=== PATIENT | female | born 1950 | race Caucasian/White ===

== ENCOUNTER 2017-11-25 08:00 | Outpatient (RCR) | payer MEDICARE, MEDICAID ==
[~2017-11-25] VITALS: Ht 157.5 cm; Wt 52.2 kg
[~2017-11-25 08:00] MED LIST: ASCO-182 PO; ASCO-191 PO; CALC500T6 PO; CALC600T63 PO; CEPH-13 PO; CEPH500T7 PO; CHOL200022 PO; DEN60I SUBQ; DIPH-466 PO; FLUT16SP19; IBUP-56 PO; IBUP200C71 PO; IBUP600T22 PO; MELO-207 PO; MULT-42 PO; ONDA8TAB91 PO; ONDA8TAB94 PO; PANT40TA65 PO; PROC10TA4 PO; TETR-30 PO; TRAM-420 PO; VIT1TAB.9 PO; ZOLP-350 PO
--- NOTE | 2017-11-25 13:42 | RADIOLOGY IMAGING REPORT ---
FACILITY: [facility] PATIENT NAME: Carola Rosario : 1950 MR: [id number] V: [id number] EXAM DATE: ORDERING PHYSICIAN: ANDREW ORDOÑEZ TECHNOLOGIST: Location: [facility] Patient: Carola Rosario : 1950 Visit/Account:[id number] Date of Sevice: 11/25/2017 Exam type: CHEST PA AND LAT History: History of breast cancer, shortness of breath Comparison: None. Findings: The lungs are free of acute effusions, infiltrates or edema. The cardiac silhouette is normal in siz e. There are moderate spondylotic changes of the thoracic spine.. There are surgical clips in the u pper abdomen IMPRESSION: 1. No acute cardiopulmonary process is seen Report Dictated By: Lissy Bean MD at 11/25/2017 1:37 PM Report E-Signed By: Lissy Bean MD at 11/25/2017 1:38 PM WSN:[id number]
[2017-12-08] MEDS ORDERED: MIDAZOLAM 2 MG/2 ML VIAL IVP PRN (09:15)
[2017-12-08] MEDS ORDERED: ceFAZolin(*) 2GM/D5W 50ML 50 ML IVPB ONE (09:15)
[2017-12-08] MEDS ORDERED: NORMOSOL R SOLN(*) 1000 ML BAG 1,000 ML IV PRN (09:15)
[2017-12-08] MEDS ORDERED: BACITRACIN 50000 UNIT/VIAL 100,000 UNIT in NS 0.9% 3000 ML IRRIGATION BAG 3,000 ML IR ONE (09:15)
[2017-12-08] MEDS ORDERED: FAMOTIDINE 20 MG TAB PO ONE (09:15)
[2017-12-08] MEDS ORDERED: cloNIDine EPIDUR INJ 100MCG/ML 40 MCG, ROPIVACAINE 0.5% 20 ML VIAL 25 ML, EPINEPHrine H... EPI ONE (09:15)
[2017-12-08] MEDS ORDERED: LIDOCAINE/SOD BICARB 8.4% SYR ID ONE (09:15)
[2017-12-08] MEDS ORDERED: TRANEXAMIC AC 1000 MG/10ML SDV 1,000 MG in DEXTROSE 5% 50 ML BAG 50 ML IV ONE (09:15)
== END 2017-12-07 08:00 | disposition home or self-care (01) ==
LOC: RAD 08:00 → EDSTATUS 12-08 10:15
PROVIDERS: ATTEND Orthopaedic Surgery
DX: Z01.812 Encounter for preprocedural laboratory examination (principal); Z01.810 Encounter for preprocedural cardiovascular examination; Z01.818 Encounter for other preprocedural examination; M16.11 Unilateral primary osteoarthritis, right hip; Z85.3 Personal history of malignant neoplasm of breast; R06.02 Shortness of breath
CPT/HCPCS: 71020

== ENCOUNTER 2017-11-30 09:07 | Emergency (ER) | payer MEDICARE, MEDICAID ==
[2017-11-30] MEDS ORDERED: NS(*) 0.9% 1000 ML BAG 1,000 ML IV ONE ×2 (09:14)
[2017-11-30] MEDS ORDERED: ONDANSETRON 4 MG/2 ML VIAL IVP ONE (09:15)
--- NOTE | 2017-11-30 09:41 | ER Report ---
History and Physical Time Seen By MD: 09:25 Hx. of Stated Complaint: Patient reporting severe nausea since yesterday. Patient had the "stomach flu" on . HPI/ROS CHIEF COMPLAINT: Nausea HISTORY OF PRESENT ILLNESS: Patient is a 67-year-old female who self-induced vomiting twice daily she felt nauseous yesterday she is scheduled to have surgery see here because she wants antibiotics because she feels nauseous and doesn't want an inferior with her surgery patient has mild generalized nonspecific abdominal discomfort she is nauseated but no active vomiting patient has no fever chills or sweats. He has no chest pain or shortness of breath no cough no additional complaints noted REVIEW OF SYSTEMS: Respiratory: No cough, no dyspnea. Cardiovascular: No chest pain, no palpitations. Gastrointestinal: Nausea without vomiting except self-induced Musculoskeletal: No back pain. Remainder of the 14 system rev: Yes Allergies: Coded Allergies: No Known Drug Allergies (Unverified , 03/26/15) Home Meds Active Scripts Tramadol Hcl (TRAMADOL HCL) 50 Mg Tablet, 50-100 MG PO Q4-6H for PAIN, #240 TAB Take 1-2 tablets every 4 hours for pain with a max dose of 6 tablets in a day. Prov:DEMAR BLANCA PATTERN CARRIER-BC, ONC 11/16/17 Fluticasone Prop 50 Mcg Ns (FLONASE 50 MCG NS) 16 Gm [place].susp, 2 SPRAYS NA QDAY for 30 Days, #1 BOT 11 Refills Prov:EUGENE SHAIKH JR, MD 09/04/17 Reported Medications Vit C/E/Zinc/Lutein/Zeaxanthin ([employer] [facility]) 50-15-4.5 Tab.chew, 2 TAB.CHEW PO DAILY 10/29/17 Denosumab (PROLIA) Unknown Strength Injs, SUBQ 09/04/17 Ascorbic Acid (VITAMIN C) 500 Mg Tablet, 500 MG PO DAILY, TAB 08/07/16 Calcium Carbonate (CALCIUM) 600 Mg Tablet, 600 MG PO QDAY 05/08/16 Cholecalciferol (Vitamin D3) (Vitamin D-3) 2,000 Unit Tablet, 2 TAB PO DAILY 12/21/15 Multivit-Min/Folic Acid/Biotin (Women Multivit W-Biotin Gummy) 200 Mcg-300 Mcg Tab.chew, 2 TAB PO DAILY 12/21/15 Ibuprofen (IBUPROFEN) 200 Mg Tablet, 3 TAB PO Q6H Y for PAIN/HEADACHE 12/21/15 Discontinued Reported Medications Pantoprazole Sodium (PANTOPRAZOLE SODIUM) 40 Mg Tablet.dr, 50 MG PO QDAY, TAB.SR 02/05/17 Reviewed Nurses Notes: Yes Old Medical Records Reviewed: Yes Hx Smoking: No Smoking Status: Never Smoker, Former Smoker Exposure to Second Hand Smoke?: No Hx Substance Use Disorder: No Hx Alcohol Use: No Constitutional Vital Sign - Last 24 Hours 11/30/17 11/30/17 11/30/17 11/30/17 09:14 09:18 09:22 09:37 Temp 98.0 Pulse 87 69 Resp 18 B/P (MAP) 144/78 144/78 (100) 140/76 (97) Pulse Ox 96 96 95 O2 Delivery Room Air 11/30/17 11/30/17 11/30/17 11/30/17 09:42 10:18 10:20 10:27 Pulse 66 B/P (MAP) 126/72 (90) 127/70 (89) Pulse Ox 97 92 11/30/17 11/30/17 11/30/17 11/30/17 10:40 10:45 10:50 10:55 Pulse 68 ? B/P (MAP) 130/70 (90) Pulse Ox 95 11/30/17 11/30/17 11/30/17 11/30/17 11:00 11:05 11:10 11:20 Pulse 62 64 66 69 B/P (MAP) 129/69 (89) 119/73 (88) Pulse Ox 96 93 91 11/30/17 11/30/17 11/30/17 11/30/17 11:25 11:30 11:35 11:40 Pulse 70 74 71 69 B/P (MAP) 122/73 (89) Pulse Ox 92 93 92 91 11/30/17 11/30/17 11:45 11:50 Pulse 70 Pulse Ox 96 91 Physical Exam General Appearance: The patient is alert, has no immediate need for airway protection and no current signs of toxicity. [ ] Eyes: Pupils equal and round no injection. Respiratory: Chest is non tender, lungs are clear to auscultation. Cardiac: regular rate and rhythm [ ] Gastrointestinal: Abdomen is soft and non tender, no masses, bowel sounds normal. Musculoskeletal: Neck: Neck is supple and non tender. Extremities have full range of motion and are non tender. Skin: No rashes or lesions. [ ] DIFFERENTIAL DIAGNOSIS: After history and physical exam differential diagnosis was considered for enteritis gastroenteritis Medical Decision Making Data Points Result Diagram: 11/30/17 0948 11/30/17 0948 Laboratory Hematology Test 11/30/17 09:48 11/30/17 10:52 11/30/17 11:12 Red Blood Count 4.89 M/uL (4.17-5.56) Mean Corpuscular Volume 92.5 fL (80.0-96.0) Mean Corpuscular Hemoglobin 31.0 pg (26.0-33.0) Mean Corpuscular Hemoglobin Concent 33.5 g/dL (32.0-36.0) Red Cell Distribution Width 13.2 % (11.5-14.5) Mean Platelet Volume 7.3 fL (7.2-11.1) Neutrophils (%) (Auto) 84.7 % (39.4-72.5) Lymphocytes (%) (Auto) 10.9 % (17.6-49.6) Monocytes (%) (Auto) 3.0 % (4.1-12.4) Eosinophils (%) (Auto) 0.8 % (0.4-6.7) Basophils (%) (Auto) 0.6 % (0.3-1.4) Nucleated RBC Relative Count (auto) 0.0 /100WBC Neutrophils # (Auto) 8.7 K/uL (2.0-7.4) Lymphocytes # (Auto) 1.1 K/uL (1.3-3.6) Monocytes # (Auto) 0.3 K/uL (0.3-1.0) Eosinophils # (Auto) 0.1 K/uL (0.0-0.5) Basophils # (Auto) 0.1 K/uL (0.0-0.1) Nucleated RBC Absolute Count (auto) 0.00 K/uL Sodium Level 143 mmol/L (137-145) Potassium Level 5.1 mmol/L (3.5-5.0) Chloride Level 105 mmol/L (98-107) Carbon Dioxide Level 27 mmol/L (22-31) Blood Urea Nitrogen 21 mg/dl (7-18) Creatinine 0.60 mg/dl (0.52-1.04) Glomerular Filtration Rate Calc > 60.0 Random Glucose 90 mg/dl (75-110) Calcium Level 9.0 mg/dl (8.4-10.2) Total Bilirubin 0.7 mg/dl (0.2-1.3) Aspartate Amino Transf (AST/SGOT) 29 U/L (0-35) Alanine Aminotransferase (ALT/SGPT) 52 U/L (0-56) Alkaline Phosphatase 115 U/L (0-126) Total Protein 6.9 gm/dl (6.3-8.2) Albumin 3.9 g/dl (3.5-5.0) Lipase 90 U/L (23-300) Serum Alcohol < 10 mg/dl Urine Color Yellow Urine Clarity Clear Urine pH 6.0 pH (4.8-9.5) Urine Specific [place] 1.014 Urine Protein Negative mg/dL (NEGATIVE) Urine Glucose (UA) Negative mg/dL (NEGATIVE) Urine Ketones 20 mg/dL (NEGATIVE) Urine Blood Negative (NEGATIVE) Urine Nitrite Negative (NEGATIVE) Urine Bilirubin Negative (NEGATIVE) Urine Urobilinogen Negative mg/dL (0.2-1.9) Urine Leukocyte Esterase Negative (NEGATIVE) Urine RBC 1 /HPF (0-2/HPF) Urine WBC 1 /HPF (0-5/HPF) Urine Squamous Epithelial Cells Moderate /LPF (</=FEW) Urine Bacteria Negative /HPF (NONE-FEW) Urine Mucus Few /HPF (NONE-FEW) Influenza Type A Antigen Negative (NEGATIVE) Influenza Type B Antigen Negative (NEGATIVE) Chemistry Test 11/30/17 09:48 11/30/17 10:52 11/30/17 11:12 White Blood Count 10.3 k/uL (4.5-11.0) Red Blood Count 4.89 M/uL (4.17-5.56) Hemoglobin 15.1 g/dL (12.0-16.0) Hematocrit 45.3 % (34.0-47.0) Mean Corpuscular Volume 92.5 fL (80.0-96.0) Mean Corpuscular Hemoglobin 31.0 pg (26.0-33.0) Mean Corpuscular Hemoglobin Concent 33.5 g/dL (32.0-36.0) Red Cell Distribution Width 13.2 % (11.5-14.5) Platelet Count 253 K/uL (150-450) Mean Platelet Volume 7.3 fL (7.2-11.1) Neutrophils (%) (Auto) 84.7 % (39.4-72.5) Lymphocytes (%) (Auto) 10.9 % (17.6-49.6) Monocytes (%) (Auto) 3.0 % (4.1-12.4) Eosinophils (%) (Auto) 0.8 % (0.4-6.7) Basophils (%) (Auto) 0.6 % (0.3-1.4) Nucleated RBC Relative Count (auto) 0.0 /100WBC Neutrophils # (Auto) 8.7 K/uL (2.0-7.4) Lymphocytes # (Auto) 1.1 K/uL (1.3-3.6) Monocytes # (Auto) 0.3 K/uL (0.3-1.0) Eosinophils # (Auto) 0.1 K/uL (0.0-0.5) Basophils # (Auto) 0.1 K/uL (0.0-0.1) Nucleated RBC Absolute Count (auto) 0.00 K/uL Glomerular Filtration Rate Calc > 60.0 Calcium Level 9.0 mg/dl (8.4-10.2) Total Bilirubin 0.7 mg/dl (0.2-1.3) Aspartate Amino Transf (AST/SGOT) 29 U/L (0-35) Alanine Aminotransferase (ALT/SGPT) 52 U/L (0-56) Alkaline Phosphatase 115 U/L (0-126) Total Protein 6.9 gm/dl (6.3-8.2) Albumin 3.9 g/dl (3.5-5.0) Lipase 90 U/L (23-300) Serum Alcohol < 10 mg/dl Urine Color Yellow Urine Clarity Clear Urine pH 6.0 pH (4.8-9.5) Urine Specific [place] 1.014 Urine Protein Negative mg/dL (NEGATIVE) Urine Glucose (UA) Negative mg/dL (NEGATIVE) Urine Ketones 20 mg/dL (NEGATIVE) Urine Blood Negative (NEGATIVE) Urine Nitrite Negative (NEGATIVE) Urine Bilirubin Negative (NEGATIVE) Urine Urobilinogen Negative mg/dL (0.2-1.9) Urine Leukocyte Esterase Negative (NEGATIVE) Urine RBC 1 /HPF (0-2/HPF) Urine WBC 1 /HPF (0-5/HPF) Urine Squamous Epithelial Cells Moderate /LPF (</=FEW) Urine Bacteria Negative /HPF (NONE-FEW) Urine Mucus Few /HPF (NONE-FEW) Influenza Type A Antigen Negative (NEGATIVE) Influenza Type B Antigen Negative (NEGATIVE) Toxicology Test 11/30/17 09:48 Serum Alcohol < 10 mg/dl Urinalysis Test 11/30/17 10:52 Urine Color Yellow Urine Clarity Clear Urine pH 6.0 pH (4.8-9.5) Urine Specific [place] 1.014 Urine Protein Negative mg/dL (NEGATIVE) Urine Glucose (UA) Negative mg/dL (NEGATIVE) Urine Ketones 20 mg/dL (NEGATIVE) Urine Blood Negative (NEGATIVE) Urine Nitrite Negative (NEGATIVE) Urine Bilirubin Negative (NEGATIVE) Urine Urobilinogen Negative mg/dL (0.2-1.9) Urine Leukocyte Esterase Negative (NEGATIVE) Urine RBC 1 /HPF (0-2/HPF) Urine WBC 1 /HPF (0-5/HPF) Urine Squamous Epithelial Cells Moderate /LPF (</=FEW) Urine Bacteria Negative /HPF (NONE-FEW) Urine Mucus Few /HPF (NONE-FEW) ED Course/Re-evaluation ED Course ED clinical course medical decision making a 67-year-old female comes emergency Department today with nausea without vomiting induced vomiting at home electrolytes baseline labs all within normal limits influenza negative I see no indication for antibiotics this time patient will be discharge diagnoses viral enteritis Decision to Disposition Date: Nov 30, 2017 Decision to Disposition Time: 12:08 Depart Departure Latest Vital Signs Vital Signs Date Time Temp Pulse Resp B/P (MAP) Pulse Ox O2 Delivery O2 Flow Rate FiO2 11/30/17 11:50 70 91 11/30/17 11:40 122/73 (89) 11/30/17 09:14 98.0 18 Room Air Impression: Primary Impression: Viral gastroenteritis Condition: Improved Disposition: HOME OR SELF-CARE Referrals: BINH BANDA MD (PCP) 2 Days Patient Instructions: Gastroenteritis (DC) LUIS F PRADHAN MD Nov 30, 2017 09:41
[2017-11-30 09:59] LABS: PLATELET COUNT, AUTOMATED 253 K/uL (150-450)
[2017-11-30 12:12] VITALS: BP 116/67
== END 2017-11-30 12:22 | disposition home or self-care (01) ==
LOC: ER 09:16
DX: K52.9 Noninfective gastroenteritis and colitis, unspecified (principal)
CPT/HCPCS: 36415; 81001; 83690; 85025; 87502; 99284; G0480; J2405; J7030; 80320; 82040; 82247; 82310; 82374; 82435; 82565; 82947; 84075; 84132; 84155; 84295; 84450; 84460; 84520

== ENCOUNTER → 2017-12-03 | Outpatient (CLI) | payer MEDICARE, MEDICAID ==
--- NOTE | 2017-12-04 08:26 | RADIOLOGY IMAGING REPORT ---
FACILITY: [facility] PATIENT NAME: JACK HERNANDEZ : [id number] MR: [id number] V: [id number] EXAM DATE: [id number] ORDERING PHYSICIAN: JOSY PAREKH TECHNOLOGIST: Ness Sandoval PROCEDURE:LIMITED RIGHT BREAST ULTRASOUND. COMPARISON:Recent mammogram of 11/18/17. Prior mammogram of 04/04/15 INDICATIONS:FURTHER EVALUATION. FINDINGS: The upper outer quadrant of the right breast was imaged sonographically revealing no abnormality, cystic or solid. A six month followup right mammogram was recommended unless clinical findings warrant more immediate attention. DIAGNOSTIC CATEGORY 3--PROBABLY BENIGN FINDING. RECOMMENDATIONS: SIX MONTH FOLLOW-UP DIAGNOSTIC MAMMOGRAM: RIGHT BREAST. IMPRESSION: Bi-RADS 3: A six month followup right mammogram is recommended as described above. Dictated by: Lissy Bean M.D. on 12/03/2017 at 16:11 Transcribed by: ZAINAB on 12/03/2017 at 18:17 Approved by: Lissy Bean M.D. on 12/04/2017 at 8:25 [facility]
== END ==
LOC: MAMO 01:21
PROVIDERS: ATTEND Internal Medicine Hematology
DX: C50.919 Malignant neoplasm of unspecified site of unspecified female breast (principal)

== ENCOUNTER 2017-12-07 08:00 | Outpatient (RCR) | payer MEDICARE, MEDICAID ==
[~2017-12-07] VITALS: Ht 157.5 cm; Wt 52.2 kg
[2017-12-21 15:20] LABS: INR 0.95
[2017-12-22] MEDS ORDERED: MIDAZOLAM 2 MG/2 ML VIAL IVP ONE (12:30)
[2017-12-22] MEDS ORDERED: NORMOSOL R SOLN(*) 1000 ML BAG 1,000 ML IV PRN (12:30)
[2017-12-22] MEDS ORDERED: cloNIDine EPIDUR INJ 100MCG/ML 40 MCG, ROPIVACAINE 0.5% 20 ML VIAL 25 ML, EPINEPHrine H... INJ ONE (12:30)
[2017-12-22] MEDS ORDERED: LIDOCAINE/SOD BICARB 8.4% SYR ID ONE (12:30)
[2017-12-22] MEDS ORDERED: BACITRACIN 50000 UNIT/VIAL 100,000 UNIT in NS 0.9% 3000 ML IRRIGATION BAG 3,000 ML IR ONE (12:30)
[2017-12-22] MEDS ORDERED: TRANEXAMIC AC 1000 MG/10ML SDV 1,000 MG in DEXTROSE 5% 50 ML BAG 50 ML IV ONE (12:30)
[2017-12-22] MEDS ORDERED: ceFAZolin(*) 2GM/D5W 50ML 50 ML IVPB ONE (12:30)
[2017-12-22] MEDS ORDERED: FAMOTIDINE 20 MG TAB PO ONE (12:30)
[2017-12-25] MEDS ORDERED: TRAM-420 PO (12:30)
== END 2017-12-21 08:00 | disposition home or self-care (01) ==
LOC: LAB 08:00 → OR 12-22 00:12 → EDSTATUS 12-22 10:00
PROVIDERS: ATTEND Orthopaedic Surgery
DX: Z01.810 Encounter for preprocedural cardiovascular examination (principal)
CPT/HCPCS: 36415; 85610; 86850; 86900; 86901

== ENCOUNTER 2017-12-29 01:06 | Day surgery (SDC) | payer MEDICARE, MEDICAID ==
[2017-12-29] VITALS (7 sets, daily range): BP systolic 111–126; BP diastolic 72–79
[~2017-12-29] VITALS: Ht 157.5 cm; Wt 53.5 kg
[2017-12-29] MEDS ORDERED: LIDOCAINE/SOD BICARB 8.4% SYR ID ONE (07:00)
[2017-12-29] MEDS ORDERED: NORMOSOL R SOLN(*) 1000 ML BAG 1,000 ML IV PRN (07:00)
[2017-12-29] MEDS ORDERED: MIDAZOLAM 2 MG/2 ML VIAL IVP PRN (07:00)
[2017-12-29] MEDS ORDERED: PROPOFOL EMUL(*) 10MG/ML 20 ML 40 ML ONE (07:14)
[2017-12-29] MEDS ORDERED: LIDOCAINE MPF 1% 5 ML VIAL ONE (07:14)
--- NOTE | 2017-12-29 07:58 | Post Operative Progress Note ---
Post Operative Progress Note Date: Dec 29, 2017 Time: 07:57 Surgeon: beth Anesthesia: dr galvez Pre-Op Diagnosis: nausea Post-Op Diagnosis: delayed gastric emptying Procedure(s): egd JEFFERSON BARROSO MD Dec 29, 2017 07:58
[2017-12-29] MEDS ORDERED: METO-734 PO (08:00)
--- NOTE | 2017-12-29 08:01 | Short(Outpt) Discharge Summary ---
Discharge Summary Reason for Hosp/Final Diag: (1) Nausea Status: Acute Hospital Course & Plan: delayed gastric emptying evident on egd Departure Discharge to: Home Discharge Instructions Home Meds Active Scripts Tramadol Hcl (TRAMADOL HCL) 50 Mg Tablet, 50-100 MG PO Q4-6H for PAIN, #240 TAB Take 1-2 tablets every 4 hours for pain with a max dose of 6 tablets in a day. Prov:DEMAR BLANCA CHARGE ATTENDANT-BC, ONC 12/25/17 Fluticasone Prop 50 Mcg Ns (FLONASE 50 MCG NS) 16 Gm [place].susp, 2 SPRAYS NA QDAY for 30 Days, #1 BOT 11 Refills Prov:EUGENE SHAIKH JR, MD 09/04/17 Reported Medications Vit C/E/Zinc/Lutein/Zeaxanthin ([employer]) 50-15-4.5 Tab.chew, 2 TAB.CHEW PO DAILY 10/29/17 Denosumab (PROLIA) Unknown Strength Injs, SUBQ 09/04/17 Calcium Carbonate (CALCIUM) 600 Mg Tablet, 600 MG PO QDAY 05/08/16 Cholecalciferol (Vitamin D3) (Vitamin D-3) 2,000 Unit Tablet, 2 TAB PO DAILY 12/21/15 Multivit-Min/Folic Acid/Biotin (Women Multivit W-Biotin Gummy) 200 Mcg-300 Mcg Tab.chew, 2 TAB PO DAILY 12/21/15 Ibuprofen (IBUPROFEN) 200 Mg Tablet, 3 TAB PO Q6H Y for PAIN/HEADACHE 12/21/15 Diet: Regular Activity: As Tolerated JEFFERSON BARROSO MD Dec 29, 2017 08:01
--- NOTE | 2017-12-29 19:15 | OPERATIVE REPORT 1 ---
EVENT DATE: December 29, 2017 SURGEON: Attila Maciel MD ANESTHESIOLOGIST: Bernardo Tong MD ANESTHESIA: Sedation. PREOPERATIVE DIAGNOSIS Nausea and vomiting. POSTOPERATIVE DIAGNOSIS Delayed gastric emptying. PROCEDURE PERFORMED Esophagogastroduodenoscopy. DESCRIPTION OF PROCEDURE The patient was placed in the left lateral decubitus position and given intravenous sedation. The flexible gastroscope was inserted. The GE junction was at 36 cm, distinct. The esophagus appeared to be normal. It distended nicely. There were no erosions, ulcerations, inflammation, and no narrowings. Upon entering the stomach, she had a large amount of foodstuffs still in the stomach despite her n.p.o. status. We passed through the stomach, through the pylorus, and the second and third portions of the duodenum which were normal. The duodenal bulb was normal. The pylorus was normal. No inflammation or narrowing was suggested at the pylorus. The antrum was normal. The body of the stomach that we could see was normal. The scope was retroflexed. She had a small hiatal hernia, but no other abnormalities. The scope was then withdrawn. The patient tolerated the procedure well with no apparent complication. MAHNAZ
== END 2017-12-29 09:20 | disposition home or self-care (01) ==
LOC: OR 01:06
PROVIDERS: ATTEND Surgery
DX: K30 Functional dyspepsia (principal); K44.9 Diaphragmatic hernia without obstruction or gangrene
CPT/HCPCS: 43235; J2001; J2704

== ENCOUNTER → 2018-02-16 | Outpatient (REF) | payer MEDICARE, MEDICAID ==
[~2018-02-16] MED LIST changes: +ERYT-108 PO; +METO-734 PO
== END ==
LOC: ZZSENDIN 15:21
PROVIDERS: ATTEND Family Medicine
DX: Z01.818 Encounter for other preprocedural examination (principal)
CPT/HCPCS: 81001

== ENCOUNTER 2018-02-25 11:26 | Outpatient (RCR) | payer MEDICARE, MEDICAID ==
[2018-01-14 11:22] VITALS: BP 148/82
--- NOTE | 2018-01-14 12:53 | ONC Progress Note - NP.Halsey ---
Patient History Date of Service Jan 14, 2018 Reason For Visit/HPI Patient requests to be seen today for sinus pain and pressure, discolored sinus drainage, swollen glands, fever and chills. Patient reports that her symptoms are approximately 5-7 days with an increase over the last 2 days. She has a slight cough but relates this to the sinus drainage. Patient continues to have pain in the right hip and difficulty with ambulation. She is scheduled to have surgery of the right hip on February 16 through [facility]. She is concerned that if she does not have improved symptoms that she will develop pneumonia and will not be able to have her surgery is scheduled. Patient follows in the clinic for management of her breast cancer. Patient reports that she previously has been in the emergency room, please see ED notes Problem List (1) Invasive ductal carcinoma of left breast, stage 3 Oncology History PRESENTATION Inverted left nipple. DIAGNOSTIC EVALUATION 1. Bilateral diagnostic digital mammogram done on April 04, 2015 did reveal the presence of 2.5 cm irregular, spiculated, dense mass in the upper outer quadrant of the left breast. 2. Ultrasound of the left breast done on April 04, 2015 showed a polylobular dense irregular mass in the upper outer quadrant of the left breast. PROCEDURE 1. Ultrasonographic guided core needle biopsy of the left breast mass done on April 09, 2015. The pathology came back positive for invasive, moderately differentiated carcinoma of the breast. No pathological markers reported. 2. Wire-guided localization left breast lumpectomy with left sentinel lymph node biopsy done May 18, 2015. PATHOLOGY Positive for invasive ductal carcinoma 3.5 cm in size, grade 3/3, DCIS present, but negative for extensive intraductal component. One sentinel lymph node came back positive for micrometastases with extracapsular extension. Stage IIB (pT2 pN1a cM0). TREATMENT 1. The patient started treatment with dose-dense AC adjuvant chemotherapy with Adriamycin and cyclophosphamide on July 02, 2015. 2. The patient completed four cycles of dose dense AC with Adriamycin and cyclophosphamide completed on August 13, 2015. 3. The patient received adjuvant Taxol therapy with twelve courses of weekly Taxol between August 29, 2015 through October 15, 2015. 4. The patient started adjuvant radiation therapy November 2015. The patient completed her radiation therapy December 2015. 5. The patient started adjuvant hormonal therapy with tamoxifen 20 mg daily on January 31, 2016. The patient stopped tamoxifen after a few days of treatment because of the side-effect. Medical History Family History: FH: dementia MOTHER FH: diabetes mellitus MOTHER FH: heart attack BROTHER OR SISTER (brother) Hepatitis C BROTHER OR SISTER No family history of COPD FATHER, , Age:83 Psychosocial History Social History The patient is single. Does not have children. 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 Denies any abuse of tobacco, alcohol or drugs. Smoking History: No (SOCIALLY SMOKED FOR A COUPLE OF YEARS ONLY) Smoking Status: Never Smoker Exposure to Second Hand Smoke?: No Medications and Allergies Active Scripts Erythromycin Base (ERYTHROMYCIN) 500 Mg Tablet, 500 MG PO BID for 5 Days, #10 TAB Prov:DEMAR BLANCAP-BC, ONC 01/14/18 Metoclopramide Hcl (REGLAN) 10 Mg Tablet, 10 MG PO TID, #90 TAB 3 Refills Prov:JEFFERSON BARROSO MD 12/29/17 Tramadol Hcl (TRAMADOL HCL) 50 Mg Tablet, 50-100 MG PO Q4-6H for PAIN, #240 TAB Take 1-2 tablets every 4 hours for pain with a max dose of 6 tablets in a day. Prov:DEMAR BLANCA-LEYDA, ONC 12/25/17 Fluticasone Prop 50 Mcg Ns (FLONASE 50 MCG NS) 16 Gm [place].susp, 2 SPRAYS NA QDAY for 30 Days, #1 BOT 11 Refills Prov:EUGENE SHAIKH JR, MD 09/04/17 Reported Medications Vit C/E/Zinc/Lutein/Zeaxanthin ([facility]) 50-15-4.5 Tab.chew, 2 TAB.CHEW PO DAILY 10/29/17 Denosumab (PROLIA) Unknown Strength Injs, SUBQ 09/04/17 Calcium Carbonate (CALCIUM) 600 Mg Tablet, 600 MG PO QDAY 05/08/16 Cholecalciferol (Vitamin D3) (Vitamin D-3) 2,000 Unit Tablet, 2 TAB PO DAILY 12/21/15 Multivit-Min/Folic Acid/Biotin (Women Multivit W-Biotin Gummy) 200 Mcg-300 Mcg Tab.chew, 2 TAB PO DAILY 12/21/15 Ibuprofen (IBUPROFEN) 200 Mg Tablet, 3 TAB PO Q6H Y for PAIN/HEADACHE 12/21/15 Allergies: Coded Allergies: No Known Drug Allergies (Unverified , 1/3/18) Review of System/Physical Exam Review of Systems All Systems Reviewed/Normal: Yes, Except as Noted Constitutional: Positive for Appetite/Weight Change, Positive for Fever/Chills/ Sweating, Positive for Recent Infection Respiratory: Positive for Cough (to be related to sinus drainage) HEENT: Nasal Discharge (discolored yellow to green), Sore Throat, Other ( swollen lymph glands bilaterally in the neck, nice pain in the teeth) Hematologic: Positive for Fatigue (feeling tired over the last 10 days) Musculoskeletal: Positive for Muscle Pain, Positive for Joint Pain, Positive for Bone Pain (right hip, scheduled for surgery in January) Psychiatric: Anxiety, Other (patient reports that she has been exposed to an upper respiratory infection recently) Skin: Positive for Erythema Physical Exam Vital Signs Temperature: 97.3 Pulse: 74 BP Systolic: 148 BP Diastolic: 82 Respiratory Rate: 16 O2 SAT: 97 O2 Delivery: Room Air Height (inches) 62.00 Weight lb: 118 Weight oz: 2.0 Weight Kg ([place]): [phone] Pain: 0 ECOG Score: 0 General: Stable, Well Developed, Well Nourished, Not In Acute Distress, Other ( patient walks with a limp and it is evident that she has pain in the right hip with ambulation. Patient feels warm and clammy) HEENT: No Mucositis, No Oral Thrush, Sinus Tenderness (maxillary sinus tenderness with palpation no frontal tenderness noted), Other (posterior pharynx with mild erythema probably related to sinus drainage) Lungs: Clear to Auscultation Heart: Regular Rate (slightly elevated blood pressure today), Regular Rhythm, No Gallops, No Murmurs Abdomen: Soft and Nontender, Other (bowel sounds are active) Extremities: No Cyanosis, No Clubbing, No Edema Lymphadenopathy: No Cervical, No Subclavicular, Other (tenderness noted with palpation bilateral supraclavicular lymph nodes, no palpable lymph node appreciated) Psychiatric: Mood appears normal, Affect appears normal Skin: Erythema Assessment and Plan Assessment & Plan Patient is seen today for acute symptoms of a upper respiratory infection probably sinus infection related. Patient's symptoms have increased over the last several days. Reported symptoms are suggestive of a bacterial infection. In review of treatment options patient reports that her risk erythromycin works best for her and that she responds well without significant side effects. She believes that she possibly has an allergy to sulfa drugs but this is not listed. She feels that Augmentin causes diarrhea and stomach problems. She is not willing to try any other medication at this time. I will treat her with erythromycin 500 mg twice a day 5 days. If symptoms do not improve patient is to call the clinic. She verbalized understanding. This section is copied. ASSESSMENT 1. Stage IIB (pT2 pN1a CM0) left breast cancer status post wire localization lumpectomy with left sentinel lymph node biopsy done May 18, 2015 for 3.5 cm invasive ductal carcinoma, grade III/III. One sentinel lymph node came back positive for micrometastasis with extracapsular extension. Tumor was ER/WA positive, HER2/robyn negative. The patient received adjuvant chemotherapy with four cycles of dose-dense AC with Adriamycin and cyclophosphamide, received between July 02, 2015 through August 13, 2015, followed by twelve weekly courses of Taxol between August 29, 2015 through October 14, 2015. The patient completed adjuvant radiation therapy December 2015. She started tamoxifen January 31, 2016, but the patient stopped her treatment and refused to continue it because of the side-effects with nausea, skin rash, stiffness and pain in the muscles and joints and inability to move or rise. She is currently in remission. Her tumor markers with CA 27-29 and CA 15-3 are within the normal range. I am planning to see her again in three months with CBC, chem panel, CA 27-29 and CA 15-3. 2. . Elevated liver enzymes thought to be due to ibuprofen, which normalized with stopping the drug. The patient is currently using ibuprofen 600 mg once daily and she will continue that. We will monitor her chem panel every month. 3. Osteoporosis. The patient was advised to continue calcium and vitamin D supplement. 4. Hypercholesterolemia. 5. Arthritis on ibuprofen. PLAN 1. Continue followup. 2. CMP every month. 3. The patient to return in three months with CBC, chem panel, CA 27-29 and CA 15-3. The patient to contact us for any new concerns or complaints. I personally spent a total of 20 minutes. Of that 20 minutes was counseling/ coordination of patient's care. See my note above for details. Copies to: BINH BANDA MD, NANCY J AIR CONDITIONING ENGINEER-BC, ONC Jan 14, 2018 12:53
[2018-02-08 11:37] LABS: PLATELET COUNT, AUTOMATED 332 K/uL (150-450)
[~2018-02-25 11:26] MED LIST changes: +DENOSUMAB 60 MG/1 ML SYR SUBQ ONE; +DEXT1TAB PO; +LIDO700A19 TD; +ONDA4TAB97 PO; +[UNRECOGNIZED DRUG - CODE] PO
[2018-02-25 11:32] VITALS: BP 135/82
[2018-02-25] MEDS ORDERED: PANT40TA65 PO (11:35)
--- NOTE | 2018-02-25 18:29 | ONCOLOGY FOLLOW UP NOTE ---
EVENT DATE: February 25, 2018 DIAGNOSES 1. Stage IIB (pT2 pN1a cM0) left invasive ductal carcinoma. 2. Hypercholesterolemia. 3. Arthritis. CHIEF COMPLAINT The patient is here today for followup of her left breast cancer. ONCOLOGY HISTORY The patient is a 67-year-old postmenopausal woman. PRESENTATION Inverted left nipple. DIAGNOSTIC EVALUATION 1. Bilateral diagnostic digital mammogram done on April 04, 2015 did reveal the presence of 2.5 cm irregular, spiculated, dense mass in the upper outer quadrant of the left breast. 2. Ultrasound of the left breast done on April 04, 2015 showed a polylobular dense irregular mass in the upper outer quadrant of the left breast. PROCEDURE 1. Ultrasonographic guided core needle biopsy of the left breast mass done on April 09, 2015. The pathology came back positive for invasive, moderately differentiated carcinoma of the breast. No pathological markers reported. 2. Wire-guided localization left breast lumpectomy with left sentinel lymph node biopsy done May 18, 2015. PATHOLOGY Positive for invasive ductal carcinoma 3.5 cm in size, grade 3/3, DCIS present, but negative for extensive intraductal component. One sentinel lymph node came back positive for micrometastases with extracapsular extension. Stage IIB (pT2 pN1a cM0). TREATMENT 1. The patient started treatment with dose-dense AC adjuvant chemotherapy with Adriamycin and cyclophosphamide on July 02, 2015. 2. The patient completed four cycles of dose dense AC with Adriamycin and cyclophosphamide completed on August 13, 2015. 3. The patient received adjuvant Taxol therapy with twelve courses of weekly Taxol between August 29, 2015 through October 15, 2015. 4. The patient started adjuvant radiation therapy November 2015. The patient completed her radiation therapy December 2015. 5. The patient started adjuvant hormonal therapy with tamoxifen 20 mg daily on January 31, 2016. The patient stopped tamoxifen after a few days of treatment because of the side-effect. HISTORY OF PRESENT ILLNESS The patient is here today for followup of her left breast cancer. She is doing fine currently except for pain in her knees, more on the right than the left, and right hip pain, and the patient is scheduled soon to have right hip replacement. She is complaining also of occasional headache. She had also nasal discharge. She had nausea and constipation. She had endoscopy for her nausea and the patient was found to have impaired emptying of the stomach, so she was prescribed Reglan and developed extrapyramidal manifestation with that so the drug was discontinued. She is currently on Protonix twice daily and her nausea is under control with that. She had a mammogram in November 2017 which showed some increased density in the upper outer quadrant of the right breast. The patient had an ultrasound after that which was normal without any masses, so the patient is advised to repeat her mammogram in six months. PAST MEDICAL HISTORY Arthritis of the knee. Hypercholesterolemia, not on any medication currently. PAST SURGICAL HISTORY Cholecystectomy nine years ago complicated with bile leakage. SOCIAL HISTORY The patient is single. Does not have children. 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 Denies any abuse of tobacco, alcohol or drugs. FAMILY HISTORY Father had melanoma at the age of fifty[age]nine. CURRENT MEDICATIONS 1. Ibuprofen three a day for her arthritis. 2. Ascorbic acid 1000 mg two times daily. 3. Multivitamins once daily. 4. Zofran p.r.n. for nausea and vomiting. ALLERGIES No known drug allergies. REVIEW OF SYSTEMS CONSTITUTIONAL: The patient has chills. HEENT: Ears: No tinnitus or hearing problem. Nose: She has runny nose. Throat: No sore throat or mouth ulcers. Eyes: No diplopia or visual changes. RESPIRATORY: The patient has shortness of breath, which is exertional. CARDIOVASCULAR: No chest pain, orthopnea, or paroxysmal nocturnal dyspnea (PND) . No edema. No palpitations. GASTROINTESTINAL: She has nausea and constipation. GENITOURINARY: No hematuria or dysuria. MUSCULOSKELETAL: She has pain in the right hip and knees, more on the right than the left. NEUROLOGICAL: No tingling or numbness in the hands or feet. She has occasional headache. No convulsions. HEMATOLOGIC/LYMPHATIC: No bleeding or easy bruising. No weakness or fatigue. No enlarged lymph nodes. SKIN: No skin rash or lumps. PSYCHIATRIC: No anxiety or depression. PHYSICAL EXAMINATION GENERAL: Looks stable. Well-developed, well-nourished, and in no acute distress. VITAL SIGNS: Blood pressure 135/82, pulse 75 per minute, respirations 16 per minute, temperature 98.7, pulse ox 93% on room air. HEENT: Head: Atraumatic. No sinus tenderness to palpation. Eyes: No icterus or conjunctivitis. Mouth and throat: No oral thrush or mucositis. NECK: Supple. No cervical or supraclavicular lymphadenopathy. LUNGS: Clear to auscultation and percussion bilaterally. HEART: Regular rate and rhythm. No gallops, murmurs, clicks or rubs. ABDOMEN: Soft and lax. No tenderness. No hepatosplenomegaly. No masses. EXTREMITIES: No cyanosis, clubbing or edema. LYMPHATICS: No peripheral lymphadenopathy. NEUROLOGICAL: Conscious, alert and oriented times three. No focal motor or sensory deficits. PSYCHIATRIC: Mood and affect appear normal. SKIN: No skin rash, bruise or purpuric eruption. DIAGNOSTIC DATA White count 8.5, hemoglobin 14.9, hematocrit 44.5, platelets 332,000. Chem panel is totally normal. CA 27-29 is 20.6, and CA 15-3 is normal at 22. Both levels of the tumor markers were normal. ASSESSMENT 1. Stage IIB (pT2 pN1a CM0) left breast cancer status post wire localization lumpectomy with left sentinel lymph node biopsy done May 18, 2015 for 3.5 cm invasive ductal carcinoma, grade III/III. One sentinel lymph node came back positive for micrometastasis with extracapsular extension. Tumor was ER/MO positive, HER2/robyn negative. The patient received adjuvant chemotherapy with four cycles of dose-dense AC with Adriamycin and cyclophosphamide, received between July 02, 2015 through August 13, 2015, followed by twelve weekly courses of Taxol between August 29, 2015 through October 14, 2015. The patient completed adjuvant radiation therapy December 2015. She started tamoxifen January 31, 2016, but the patient stopped treatment and refused to continue it because of the side effects, with nausea, skin rash, stiffness and pain in the muscles and joints, and inability to move or rise. She is currently in remission. Her mammogram done in November showed some increased density in the upper outer quadrant of the right breast, but ultrasound did not show any masses, with recommendation to repeat the mammogram in six months. Her CA 27-29 and CA 15-3 are within the normal range. I am planning to see her again in three months with CBC, chem panel, CA 27-29 and CA 15-3. Patient is planning to move after her right hip replacement to [place], and if she moves before her next appointment I will see her in [place] rather than here in [place]. 2. . Osteoporosis. Patient advised to continue calcium and vitamin D supplement. 3. Hypercholesterolemia. 4. Arthritis. PLAN 1. Continue followup. 2. Patient to return in three months with CBC, chem panel, CA 27-29 and CA 15- 3. 3. The patient to contact us for any new concerns or complaints. MAHNAZ
[2018-03-08] MEDS ORDERED: ASPI-757 PO (19:07)
[2018-03-09] MEDS ORDERED: OXYC-865 PO ×2 (07:12→07:13)
== END 2018-04-14 ==
LOC: ONC 11:26
PROVIDERS: ATTEND Internal Medicine Hematology
DX: Z85.3 Personal history of malignant neoplasm of breast (principal); Z92.3 Personal history of irradiation; Z92.21 Personal history of antineoplastic chemotherapy; Z79.899 Other long term (current) drug therapy; Z87.891 Personal history of nicotine dependence; M81.0 Age-related osteoporosis without current pathological fracture; E78.00 Pure hypercholesterolemia, unspecified; R05 Cough; R53.83 Other fatigue
CPT/HCPCS: 36415; 85025; 86300; 96372; G0463; J0897; 82040; 82247; 82310; 82374; 82435; 82565; 82947; 84075; 84132; 84155; 84295; 84450; 84460; 84520; 99212

== ENCOUNTER 2018-03-02 01:39 | Inpatient (IN) | payer MEDICARE, MEDICAID ==
[2018-03-01 15:51] LABS: INR 0.91
[2018-03-02] VITALS (11 sets, daily range): BP systolic 119–135; BP diastolic 54–88
[~2018-03-02] VITALS: Ht 157.5 cm; Wt 52.7 kg
[~2018-03-02 01:39] MED LIST changes: -DENOSUMAB 60 MG/1 ML SYR SUBQ ONE
[2018-03-02] MEDS: FAMOTIDINE 20 MG TAB PO ONE ×2 (10:33→10:52)
[2018-03-02] MEDS ORDERED: TRANEXAMIC AC 1000 MG/10ML SDV 1,000 MG in DEXTROSE 5% 50 ML BAG 50 ML IV ONE (11:30)
[2018-03-02] MEDS ORDERED: LIDOCAINE/SOD BICARB 8.4% SYR ID ONE (11:30)
[2018-03-02] MEDS ORDERED: ceFAZolin(*) 2GM/D5W 50ML 50 ML IVPB ONE (11:30)
[2018-03-02] MEDS ORDERED: MIDAZOLAM 2 MG/2 ML VIAL IVP ONE (11:30)
[2018-03-02] MEDS ORDERED: BACITRACIN 50000 UNIT/VIAL 100,000 UNIT in NS 0.9% 3000 ML IRRIGATION BAG 3,000 ML IR ONE (11:30)
[2018-03-02] MEDS ORDERED: NORMOSOL R SOLN(*) 1000 ML BAG 1,000 ML IV PRN (11:30)
[2018-03-02] MEDS ORDERED: cloNIDine EPIDUR INJ 100MCG/ML 40 MCG, ROPIVACAINE 0.5% 20 ML VIAL 25 ML, EPINEPHrine H... INJ ONE (11:30)
[2018-03-02] MEDS ORDERED: PROPOFOL EMUL(*) 10MG/ML 20 ML 20 ML ONE (11:52)
[2018-03-02] MEDS ORDERED: fentaNYL CITR 100 MCG/2 ML AMP ONE (11:52)
[2018-03-02] MEDS ORDERED: ONDANSETRON 4 MG/2 ML VIAL ONE (11:52)
[2018-03-02] MEDS ORDERED: LIDOCAINE MPF 1% 5 ML VIAL ONE (11:52)
[2018-03-02] MEDS ORDERED: MIDAZOLAM 2 MG/2 ML VIAL ONE (11:52)
[2018-03-02] MEDS ORDERED: DEXAMETHASONE SOD PHOS 10MG/ML ONE (11:52)
[2018-03-02] MEDS ORDERED: PHENYLEPHRINE 10 MG/1 ML VIAL ONE (14:33)
[2018-03-02] MEDS ORDERED: diphenhydrAMINE 50 MG/ML VIAL IVP PRN (16:10)
[2018-03-02] MEDS ORDERED: BISACODYL 10 MG SUPP PR PRN (16:10)
[2018-03-02] MEDS ORDERED: PROMETHAZINE 25 MG/ML 1 ML AMP IVP PRN (16:10)
[2018-03-02] MEDS ORDERED: FLUSH 10 ML SYR IVP PRN (16:10)
[2018-03-02] MEDS ORDERED: LR 1000 ML BAG 1000 ML IV PRN (16:10)
[2018-03-02] MEDS ORDERED: MAGNESIUM HYDROXIDE* 30ML UDCP PO PRN (16:10)
[2018-03-02] MEDS ORDERED: ONDANSETRON 4 MG/2 ML VIAL IVP PRN (16:10)
[2018-03-02] MEDS ORDERED: ZOLPIDEM TARTRATE 5 MG TAB PO PRN (16:10)
[2018-03-02] MEDS ORDERED: MAGNESIUM CITRATE 300 ML BTL PO PRN (16:10)
--- NOTE | 2018-03-02 16:34 | RADIOLOGY IMAGING REPORT ---
FACILITY: [facility] PATIENT NAME: Carola Rosario : 1950 MR: [id number] V: [id number] EXAM DATE: ORDERING PHYSICIAN: ANDREW ORDOÑEZ TECHNOLOGIST: Location: [facility] - [place] Patient: Carola Rosario : 1950 Visit/Account:[id number] Date of Sevice: 03/02/2018 Exam type: HIP IN OR RIGHT History: RIGHT HIP ARTHROPLASTY Comparison: February 22, 2014. Findings: A single intraoperative view of the lower pelvis demonstrate a trial right hip arthroplasty that appe ars in relatively good anatomic alignment on this AP view. Surgical instruments project over the ope rative field IMPRESSION: 1. As above Report Dictated By: Lissy Bean MD at 03/02/2018 4:30 PM Report E-Signed By: Lissy Bean MD at 03/02/2018 4:31 PM WSN:[email or web address]
--- NOTE | 2018-03-02 16:39 | RADIOLOGY IMAGING REPORT ---
FACILITY: [facility] [place]IENT NAME: Carola Rosario : 1950 MR: [id number] V: [id number] EXAM DATE: ORDERING PHYSICIAN: ANDREW ORDOÑEZ TECHNOLOGIST: Location: [facility] Patient: Carola Rosario : 1950 Visit/Account:[id number] Date of Sevice: 03/02/2018 Exam type: PELVIS History: CONFIRM PLACEMENT Comparison: September 27, 2013. Findings: There is a right hip arthroplasty that appears in good anatomic alignment on this single AP view. So ft tissue gas projects over the right hip on this postoperative study IMPRESSION: 1. As above Report Dictated By: Lissy Bean MD at 03/02/2018 4:34 PM Report E-Signed By: Lissy Bean MD at 03/02/2018 4:35 PM WSN:[email or web address]
[2018-03-02] MEDS ORDERED: ceFAZolin(*) 1 GM VIAL 1 GM in NS(*) 0.9% 100 ML ADDVANT BAG 100 ML IVPB SCH (17:00)
--- NOTE | 2018-03-02 18:43 | Hospitalist Progress Note ---
Subjective Progress Notes Subjective Patient seen post-op. She reports doing well. Pain has been controlled. She denies any CP/SOB/N/V. Reviewed PMHX (GERD, breast cancer) and medications. Physical Exam Vital Signs Date Time Temp Pulse Resp B/P (MAP) Pulse Ox O2 Delivery O2 Flow Rate FiO2 03/02/18 18:12 98.8 87 12 128/71 (90) 99 Nasal Cannula 2.0 Intake and Output 03/03/18 07:00 Intake Total 2300 ml Output Total 100 ml Balance 2200 ml Intake Oral 200 ml IV Total 1850 ml Other 250 ml Output Estimated Blood Loss 100 ml General Appearance: Alert, Awake Cardiovascular: Regular Rate and Rhythm Respiratory: Clear to Auscultation Assessment and Plan Problems: (1) S/P hip replacement Status: Acute Assessment & Plan: She appears to be stable post-op. She has no history of DVT or PE, but has the history of breast cancer. Dr. Farris has planned to have her on aspirin for DVT prophylaxis. (2) GERD (gastroesophageal reflux disease) Status: Chronic Assessment & Plan: Will continue Protonix. (3) Breast cancer Status: Chronic Assessment & Plan: She has received her care through the [facility] with Dr. Cody Sims. At her most recent visit, he feels she is in remission. JORDYN ROSALES MD Mar 02, 2018 18:43
[2018-03-02] MEDS: ASPIRIN 325 MG TAB PO SCH (21:51)
[2018-03-02] MEDS: PANTOPRAZOLE SOD 40 MG TABEC PO SCH (21:51)
[2018-03-02] MEDS: diphenhydrAMINE 25 MG CAP PO PRN (21:51)
[2018-03-02] MEDS: ceFAZolin(*) 1 GM VIAL 1 GM in NS(*) 0.9% 100 ML ADDVANT BAG 100 ML IV SCH (22:00)
[2018-03-02] MEDS: HYDROmorphone HCL 2 MG/ML SDV IVP PRN (22:51)
[2018-03-02] MEDS: CALCIUM CARBONATE 500 MG CHEW PO PRN (23:10)
--- NOTE | 2018-03-02 23:38 | OPERATIVE REPORT 1 ---
EVENT DATE: March 02, 2018 SURGEON: Jae Farris MD ANESTHESIOLOGIST: Chris Hadley MD ANESTHESIA: General plus spinal. SPECIAL EDUCATION PRESCHOOL TEACHER: Mark Way PA-C PREOPERATIVE DIAGNOSIS Right hip osteoarthritis. POSTOPERATIVE DIAGNOSIS Right hip osteoarthritis. PROCEDURE PERFORMED Right total hip arthroplasty. FINDINGS The patient had a significant amount of arthritic changes associated with the hip, but was amenable for a total hip replacement. ESTIMATED BLOOD LOSS About 200 mL. DRAINS None. COMPLICATIONS None. TOURNIQUET TIME Not applicable. IMPLANTS USED Brenda 52 mm cluster hole trabecular metal cup with a neutral liner for a 36, - 3.5 head, a 6 standard stem, a dome hole plug, and three screw hole plugs to plug the cluster holes. SPECIMENS None. INDICATIONS AND HISTORY This patient is a 67-year-old female who presented to my clinic for evaluation of right hip pain and irritation going on for some time. She had continued pain and irritation despite conservative management. Unfortunately, she required a lot of care prior and had even been put on the surgery schedule a couple times prior to this particular day. This was her third outing as she had gotten nauseous before each time. She then had to undergo quite a bit of preoperative testing associated with this in order to get cleared again for surgery. She had a lot of questions associated with this and kind of some irrational fears associated with this, and so we talked to her extensively about the aspects of a total hip arthroplasty and expected outcomes associated with this. We also told her that most of these are done with people only staying one or two nights in the hospital. She is adamant that she wants to stay three nights, but I told her that is not up to us. It is how she is doing in accordance with pain and her PT. We got her set up for some home health consultation prior to this surgery, and we also had a very long consultation with her about the expectations and aspects of surgery, including the rehab, and the expected aspects of pain, incision expectations, and hip precautions, as well as pain medications associated with after the surgery itself. After this, we got informed consent, and we got her set up to do this today. DESCRIPTION OF PROCEDURE As the patient was brought into the operating room, she and the procedure were both verified. She was placed supine on the operative table and given a spinal by Anesthesia. She was then induced and intubated and then turned in the lateral decubitus position. The right hip was then prepped and draped in the usual fashion. A timeout was observed verifying the correct patient and procedure. The standard incision was made in the posterolateral aspect of the hip. It was taken through the skin and subcutaneous tissue. I was then able to get down through the IT band and into the gluteal musculature and split that dissection by hand. Once I was able to do this, I was then able to identify the short external rotators including the piriformis. I cut and tagged the piriformis in order to make it amenable for later repair. This was then followed by cutting of the first part of the short external rotators in order to gain access to the femoral neck and head. Once I gained access to the femoral neck and head and cauterized all bleeders in this area, I was then able to make a T-shaped incision within the capsule, maintaining a high shaped incision in order to gain better acetabular exposure. Once I had good acetabular exposure with the retractors anteriorly and inferiorly, I was then able to tag the capsule for later repair. The patient's labrum was pretty much calcified throughout the entire aspect. We did remove some aspects of this, but did leave some of the anterior osteophytes in place in order to increase stability, though we did make sure it did not impinge anteriorly during the case. I then was able to subsequently take out the ligamentum flavum and then get down to the true pelvic floor. I then subsequently reamed and got down to the true pelvic floor and then reamed all the way up to a 51 mm reamer. I was able to put in a 52 cluster hole shell without any difficulty with an interference fit. It was very solid, and so therefore, we did not need one of the screws for the cluster hole. It should be noted that we cut the femoral neck in the standard fashion after dislocation after cutting the short external rotators and capsule and disposed that on the back table. I then put in the final liner to the acetabular component after putting in the dome hole and screw hole plugs and then irrigated with copious amounts of saline. I then turned my attention to the femur. Once on the femur, I was then able to freshen up the cut through this area, and then I put a box cutting osteotome, followed by a canal finder, and then a lateralizing reamer. We then subsequently broached up to a 6 broach which had a good interference fit, and we dialed in a little bit of version associated with this to help with dislocations. This was then followed by irrigation with copious amounts of saline. I then trialed a standard stem with a regular head. This was found to be a little bit too long on the intraoperative x-ray, so a - 3.5 was chosen. I then put in the final components with a 6 stem and a -3.5 head, which was a ceramic 36 mm head. This was then followed by irrigation with copious amounts of saline, relocation, and put it through range of motion. I had excellent range of motion compared to preoperatively where she did have some contractures associated with this. Therefore, I then closed the posterior capsule with a heavy Ethibond suture. This was then followed by reattaching the piriformis to the posterior aspect of the femur through drill holes, and then I was able to irrigate again with copious amounts of saline. I then closed the gluteal and IT band with two Stratafixes, then followed by 2-0 Vicryl in the deep layer of fat, then a 2-0 Stratafix in the subcutaneous layer, and then a subcuticular running 4-0 Monocryl. A bio-occlusive dressing was then placed over the wound. The patient was then awakened, extubated, and transferred to PACU in stable condition after the wound was dressed and anesthetized with a cocktail. She will be admitted overnight, and then we will follow her progress in house. MAHNAZ
[2018-03-03] MEDS: HYDROmorphone HCL 2 MG/ML SDV IVP PRN ×3 (00:54→11:01)
[2018-03-03 02:32] VITALS: BP 109/71
[2018-03-03] MEDS: ceFAZolin(*) 1 GM VIAL 1 GM in NS(*) 0.9% 100 ML ADDVANT BAG 100 ML IV SCH ×2 (06:19→13:47)
[2018-03-03 08:46] VITALS: BP 99/58
[2018-03-03] MEDS: PANTOPRAZOLE SOD 40 MG TABEC PO SCH ×2 (08:50→21:01)
[2018-03-03 10:38] VITALS: BP 116/58
--- NOTE | 2018-03-03 11:22 | Hospitalist Progress Note ---
Subjective Progress Notes Subjective She has no complaints this morning. Patient Complains of: Cardiovascular: No: Chest Pain Respiratory: No: Shortness of Breath Physical Exam Vital Signs Date Time Temp Pulse Resp B/P (MAP) Pulse Ox O2 Delivery O2 Flow Rate FiO2 03/03/18 10:52 94 Room Air 03/03/18 10:38 16 116/58 (77) 03/03/18 08:46 98.5 85 3.0 Intake and Output 03/04/18 07:00 Intake Total 340 ml Balance 340 ml Intake Oral 240 ml IV Total 100 ml General Appearance: Alert, Awake, No Acute Distress, Afebrile Cardiovascular: Regular Rate and Rhythm Respiratory: No Respiratory Distress, Clear to Auscultation Psych: Alert & Oriented X3, Appropriate Mood & Affect Result Diagram: 03/03/1828 03/03/18527 Assessment and Plan Problems: (1) S/P hip replacement Status: Acute Assessment & Plan: She appears to be stable post-op. She has no history of DVT or PE, but has the history of breast cancer. Dr. Farris has planned to have her on aspirin for DVT prophylaxis. (2) GERD (gastroesophageal reflux disease) Status: Chronic Assessment & Plan: Will continue Protonix. (3) Breast cancer Status: Chronic Assessment & Plan: She has received her care through the [facility] with Dr. Cody Sims. At her most recent visit, he feels she is in remission. Exam Sepsis Risk: No Definite Risk AMBROSIO PECK WOOD PRESERVING PLANT LABORER Mar 03, 2018 11:22
[2018-03-03 12:50] VITALS: Ht 157.5 cm; Wt 52.7 kg
[2018-03-03 16:06] VITALS: BP 123/69
[2018-03-03 20:09] VITALS: BP 115/65
[2018-03-03] MEDS: ASPIRIN 325 MG TAB PO SCH (21:00)
[2018-03-03] MEDS: diphenhydrAMINE 25 MG CAP PO PRN (21:01)
[2018-03-03] MEDS: CALCIUM CARBONATE 500 MG CHEW PO PRN (23:03)
[2018-03-04 05:38] VITALS: BP 135/75
[2018-03-04 08:31] VITALS: BP 129/71
[2018-03-04] MEDS: PANTOPRAZOLE SOD 40 MG TABEC PO SCH ×2 (08:41→21:05)
--- NOTE | 2018-03-04 09:53 | Hospitalist Progress Note ---
Subjective Progress Notes Subjective She has no complaints this morning. Patient Complains of: Cardiovascular: No: Chest Pain Respiratory: No: Shortness of Breath Physical Exam Vital Signs Date Time Temp Pulse Resp B/P (MAP) Pulse Ox O2 Delivery O2 Flow Rate FiO2 03/04/18 08:31 98.7 95 16 129/71 (90) 93 Room Air 03/04/18 05:38 0.5 Intake and Output 03/05/18 07:00 Intake Total 0 ml Balance 0 ml Intake Oral 0 ml General Appearance: Alert, Awake, No Acute Distress, Afebrile Cardiovascular: Regular Rate and Rhythm Respiratory: No Respiratory Distress, Clear to Auscultation Psych: Alert & Oriented X3, Appropriate Mood & Affect Result Diagram: 03/04/18 0527 03/03/18 0528 Assessment and Plan Problems: (1) S/P hip replacement Status: Acute Assessment & Plan: She appears to be stable post-op. She has no history of DVT or PE, but has the history of breast cancer. Dr. Farris has planned to have her on aspirin for DVT prophylaxis. (2) GERD (gastroesophageal reflux disease) Status: Chronic Assessment & Plan: Will continue Protonix. (3) Breast cancer Status: Chronic Assessment & Plan: She has received her care through the [facility] with Dr. Cody Sims. At her most recent visit, he feels she is in remission. Exam Sepsis Risk: No Definite Risk AMBROSIO PECK HAT COPYIST Mar 04, 2018 09:53
[2018-03-04 10:48] VITALS: BP 103/69
[2018-03-04 19:31] VITALS: BP 128/72
[2018-03-04] MEDS: diphenhydrAMINE 25 MG CAP PO PRN (21:04)
[2018-03-04] MEDS: ASPIRIN 325 MG TAB PO SCH (21:05)
[2018-03-05 01:12] VITALS: BP 106/67
[2018-03-05 05:04] VITALS: BP 112/68
[2018-03-05 07:45] VITALS: BP 111/68
[2018-03-05] MEDS: PANTOPRAZOLE SOD 40 MG TABEC PO SCH (08:26)
--- NOTE | 2018-03-05 10:02 | Hospitalist Progress Note ---
Subjective Progress Notes Subjective She only c/o pain in surgical site. Physical Exam Vital Signs Date Time Temp Pulse Resp B/P (MAP) Pulse Ox O2 Delivery O2 Flow Rate FiO2 03/05/18 08:44 Room Air 03/05/18 07:45 99.0 83 16 111/68 (82) 94 Intake and Output 03/06/18 07:00 Intake Total 360 ml Balance 360 ml Intake Oral 360 ml # Voids 1 General Appearance: Alert, Awake Cardiovascular: Regular Rate and Rhythm Respiratory: Clear to Auscultation Result Diagram: 03/05/18 0519 03/03/18 0528 Assessment and Plan Problems: (1) S/P hip replacement Status: Acute Assessment & Plan: She appears to be stable post-op. She has no history of DVT or PE, but has the history of breast cancer. Dr. Farris has planned to have her on aspirin for DVT prophylaxis. (2) GERD (gastroesophageal reflux disease) Status: Chronic Assessment & Plan: Will continue Protonix. (3) Breast cancer Status: Chronic Assessment & Plan: She [facility] with [facility]. Cody Sims. At her most recent visit, he felt she is in remission. Exam Sepsis Risk: No Definite Risk JORDYN ROSALES MD Mar 05, 2018 10:02
[2018-03-05 10:31] VITALS: BP 127/71
== END 2018-03-05 13:15 | DRG 470 ==
LOC: OR 01:39 → MED 18:15
PROVIDERS: ADMIT Orthopaedic Surgery; ATTEND Orthopaedic Surgery
PROC: 0SR902Z Replacement of Right Hip Joint with Metal on Polyethylene Synthetic Substitute, Open Approach (ICD-10-PCS; principal; 2018-03-02 14:10)
DX: M16.11 Unilateral primary osteoarthritis, right hip (principal); K21.9 Gastro-esophageal reflux disease without esophagitis; F32.9 Major depressive disorder, single episode, unspecified; Z90.49 Acquired absence of other specified parts of digestive tract; Z85.3 Personal history of malignant neoplasm of breast; Z72.0 Tobacco use
CPT/HCPCS: 36415; 72170; 82310; 82374; 82435; 82565; 82947; 84132; 84295; 84520; 85014; 85018; 85610; 86850; 86900; 86901; 97161; C1713; C1776; J0171; J0690; J0735; J1100; J1170; J1885; J2001; J2250; J2370; J2405; J2704; J2795; J3010; J7050; J7060; Q0163

== ENCOUNTER 2018-03-05 13:15 | Inpatient (IN) | payer MEDICARE, MEDICAID ==
[~2018-03-05] VITALS: Ht 157.5 cm; Wt 55.4 kg
[2018-03-05] MEDS ORDERED: MAGNESIUM HYDROXIDE* 30ML UDCP PO PRN (13:36)
[2018-03-05] MEDS ORDERED: BISACODYL 10 MG SUPP PR PRN (13:36)
[2018-03-05] MEDS ORDERED: diphenhydrAMINE 25 MG CAP PO PRN (13:38)
--- NOTE | 2018-03-05 13:44 | Consultant Pharmacy Review ---
Rope Coiling Machine Operator Review Medication Review Do All Mecications have a Diag: Yes Beers Criteria Medication 2014 Anticholinergics exclude TCAs: Diphenhydramine (Q6 HRS PRN. INCREASES FALL RISK.) Non-BZD Hypnotics: Zolpidem (5-10 MG HS PRN. INCRESES FALL RISK.) Proton Pump Inhibitors: Pantoprazole (USE FOR THE SHORTEST TIME POSSIBLE. INCREASES FRACTURE RISK.) Other General Cautions Lexicomp Interaction Analysis A = No known interaction C = Monitor therapy X = Avoid combination B = No action needed D = Consider therapy modification Drugs in this analysis: Ambien; Aspirin; Bisacodyl; Calcium Carbonate; DiphenhydrAMINE (Systemic); Magnesium Hydroxide; Percocet; Protonix * Drug-Drug Interactions * D Ambien (COUNTER CONTROL OPERATOR Depressants) Percocet (OxyCODONE) D Ambien (Zolpidem) DiphenhydrAMINE (Systemic) (COUNTER CONTROL OPERATOR Depressants) Depends on Brand Name D Ambien (Zolpidem) Percocet (COUNTER CONTROL OPERATOR Depressants) Depends on Brand Name D Bisacodyl Calcium Carbonate (Antacids) D Bisacodyl Magnesium Hydroxide (Antacids) D DiphenhydrAMINE (Systemic) (COUNTER CONTROL OPERATOR Depressants) Percocet (OxyCODONE) B Aspirin (Salicylates) Calcium Carbonate (Antacids) Depends on Duration B Aspirin (Salicylates) Magnesium Hydroxide (Antacids) Depends on Duration * Aspirin Calcium Carbonate Pneumococcal Vaccine HX Pneumo Vac ([id number]): No HX Pneumo Vac (Pneumovax): No KIERSTEN RENDNO Mar 05, 2018 13:44
[2018-03-05 14:00] VITALS: BP 111/64
--- NOTE | 2018-03-05 15:28 | OT ECF NOTE ---
Type of Note: Initial Note Primary Medical Diagnosis: Generalized weakness s/p R LATIA Occupational Therapy Evaluation Date: 03/05/18 SUBJECTIVE: Prior Hospitalization: H 03/02/18 thru 03/05/18 Prior Level of Function: (I) with all ADLs, IADLs Prior Living Status: Alone Community Services: Support adequate, No known needs Home Accessibility: Stairs with rails All needs on one level Walk-in shower Tub/shower combination Equipment Owned: Front wheeled walker Toilet riser Tub/shower chair Medical Complications/Past Medical History: GERD, breast cancer (in remission ) Psychosocial Support: None noted Pain Scale (0-10): 2/10 supine in bed upon initial evaluation OBJECTIVE: Strength: MMT: Right Left Shoulder Flexion WFL WFL Elbow Flexion WFL WFL Wrist Extension WFL WFL Dipper Operator WFL WFL (5= normal, 4= good, 3= fair, 2= poor, 1= trace) ROM: Both upper extremities, WFL Functional Transfer: Assistive Device: Front wheeled walker, Gait belt Transfer Ability: SBA ADL: Upper body dressing: Assistive device: None Upper body dressing ability: Set-up Lower body dressing: Assistive device: Pt will benefit from LB AE education Lower body dressing ability: Maximum assistance Toileting: Assistive device: Raised toilet seat Toileting ability: N/T Grooming/hygiene: Assistive device: Grooming ability: N/T Bathing: Assistive device: Bathing ability: N/T Standardized Assessment: Ana Index of Activities of Daily Livin20 upon initial evaluation (). ASSESSMENT: Carola presents to [facility] with decreased (I) for ADLs and IADLs s/p R LATIA. She will benefit from skilled OT services to optimize (I) with ADLs/IADLs prior to discharge home alone. Problem List/Current Limitations: Pain Generalized weakness Short Term Goals: 1) Pt will be Mod (I) UB/LB dressing. 2) Pt will be Mod (I) grooming/hygiene. 3) Pt will be Mod (I) toilet task. 4) Pt will be Mod (I) shower task. 5) Pt will be Mod (I) light meal prep task. 6) Pt Ana Index of ADLs score will increase by 2 points. Usp Goals: Return home with HH vs outpatient PT Patient Goals: "Be okay to go home alone" Rehabilitation Prognosis: Good Barriers to Discharge: Pt fearful of movement with recent R LATIA and demonstrates anxiety with ambulation and ADLs. PLAN: The patient will benefit from skilled occupational therapy services 5 times per week for 2 weeks including: Ther ex ADL training Safety training Ther act IADL training Transfer training Adaptive equip training Bed mobility Energy conservation Thank you for this referral. If you have any questions, concerns, or comments about this report or plan, please contact me at . Bethany Rosario MS, OTR/L Occupational Therapist MAHNAZ
--- NOTE | 2018-03-05 19:10 | PT ECF NOTE ---
Type of Note: Initial Note Primary Medical Diagnosis: Generalized weakness s/p R) LATIA Physical Therapy Evaluation Date: 03/05/18 SUBJECTIVE: Prior Hospitalization: [facility] 03/02/18 thru 03/05/18; s/p elective R) LATIA Prior Level of Function: (I) with all ADLs, IADLs Prior Living Status: Alone; Bi-level home Community Services: Support adequate, No known needs Home Accessibility: Stairs with rails, All needs on one level, Walk-in shower , Tub/shower combination Equipment Owned: Front wheeled walker, Toilet riser, Tub/shower chair Medical Complications/Past Medical History: GERD, breast cancer (in remission ) Psychosocial Support: None noted Pain Scale (0-10): 2/10 supine in bed upon initial evaluation OBJECTIVE: Strength: Manual muscle testing not completed due to discomfort. Pt is unable to lift R) LE against gravity and is also unable to complete a heel slide easily in bed. ROM: (please note any abnormalities) R) hip limited due to posterior hip precautions Sensation: (please note any abnormalities) no paresthesias reported Other Neuro findings: n/a Bed Mobility: Min assist/CGA for support of R) LE while exiting flat bed to the right. Assistive device: Bed rail Transfers: Verbal cues; SBA Assistive Device: Front wheeled walker; Gait belt Gait: 100' with Verbal cues; SBA Assistive device: Front wheeled walker Stairs: Not yet addressed Assistive device: Timed Up and Go (>12 seconds indicated increased risk for falls): N/A 10 meter walk test (0.6m/second cannot function independently): 0.15m/sec during straight distance ambulation. Other Objective Measures: n/a ASSESSMENT: Pt is very anxious regarding basic mobility and tends to perseverate on previous instructions that she may have read in a pre-op book. Pt encouraged to "listen to her body" for guidance on mobility and that PT will ensure that she does not break her hip precautions while performing basic ADL' s. Pt was able to verbalize all LATIA precautions. While in bed, however, pt notes that her hip is bothering her and pt was encouraged to have her feet slightly further apart to allow for more hip abduction, which allows the hip to sit more fully in the socket. Pt states, "No, it feels better when I have them closer together". Pt also begins to guard when she moves and this appears to increase her pain. Pt then states "Why am I not getting better, and everyone else does so well?". Pt encouraged that she is progressing at her own pace and is doing functionally well. PT in this setting will emphasize more indep with movement and fewer verbal cues for instructions, to allow pt to transition back to full indep at home safely. PT will also address ROM and strengthening within surgical ROM limitations. Problem List/Current Limitations: Pain, Decreased activity prince, Decreased strength, Decreased ROM, Decreased balance Short Term Goals: 1. Pt to be indep with bed mobility and supine to/from sit transfers with proper compliance with hip precautions 2. Pt to be indep with sit to/from stand transfers with FWW and chose appropriate sitting surfaces of higher height for LATIA precautions 3. Pt to ambulate 200' with FWW and improved rigo and TUG test 4. Pt to prince up/down 4 steps with rail modified indep Nursing Home Goals: Pt to transition home to previous living arrangement with increased confidence and safety with mobility and ADL's. Patient Goals: To discharge home by or Thu next week, as this is her "holy week" of [facility]. Rehabilitation Prognosis: Good Barriers for Discharge: Pt's problem solving skills and indep with functional mobility within her LATIA precautions guidelines. PLAN: The patient will benefit from skilled physical therapy services 5 times per week for 2 weeks including: Therapeutic Exercise Therapeutic Activities, Transfer Training, Gait Training, Stair Training, ADL's , Safety Training, Pt/Caregiver Training, Bed Mobility Thank you for this referral. If you have any questions, concerns, or comments about this report or plan, please contact me at . H. Pretty Miller, PT, MPT MTDD
[2018-03-05 19:49] VITALS: Ht 157.5 cm; Wt 55.4 kg
[2018-03-05] MEDS: ASPIRIN 325 MG TAB PO SCH (20:50)
[2018-03-05] MEDS: diphenhydrAMINE 25 MG CAP PO PRN (20:51)
[2018-03-05] MEDS: PANTOPRAZOLE SOD 40 MG TABEC PO SCH (20:51)
[2018-03-06 07:35] VITALS: BP 103/71
[2018-03-06] MEDS: PANTOPRAZOLE SOD 40 MG TABEC PO SCH ×2 (09:26→20:16)
--- NOTE | 2018-03-06 09:44 | Medical Nutrition Therapy ---
Nutrition Anthropometrics Height (Inches): 62.00 Height (Calculated Centimeters: 157.126008 Weight (Pounds): 122 Weight (Calculated Kilograms): 55.395 BMI Calculated: 22.31 Juan Nutrition Score: Adequate Juan Nutrition Risk Score: 17 Dietary Referral Nutrition Risk Factors: Nutrition Risk Comment: Physical Findings Physical Appearance: WNR Skin Appearance Skin Appearance: Edema Edema Location Modifier: Edema Location: Type of Edema: Degree of Edema: Gastrointestinal Symptoms GI Symtoms: Appetite Changes Tube Present: Bowel Sounds: Recent Bowel Pattern: Stool Characteristics: Nutrition/Food History No Significant Nutr. HX Fair Nutritional Diagnosis Nutritional Risk Acuity 3: Fair Appetite Past Medical History: Pt past medical history of GERD and breast cancer. Nutritional Acuity: 3-Mild Nutrition Diagnosis: Increased Nutrient Needs Nutrition Etiology: Physiological Causes Nutrition Problem/Etiology/Sym: Increased Nutrient Needs related to increased demand for nutrients secondary to wound healing AEB by recent surgery indicating increased metabolic needs. Energy Requirement: 1675 ([place]-St Jeor: Actual BW X 1.6) Protein Requirement: 56 (Actual BW Kg X 1.0) Fluid Requirement: 1675 Diet Type: Diet as Tolerated MARISOL/REG Nutrition Intervention: Cont diet as ordered Nutrition Monitoring & Eval Nutrition Goals: Eat 75-100% Meal RD Patient Assessment Time: [address] Assessment Type: RD Assessment Patient Nutrition Acuity: 3-Mild Follow Up Date: Mar 09, 2018 Nutritional Comment: Pt orginally admitted for hip replacement and transferred to [facility] for rehab. Glu 107. BMI within normal range. Receiving MARISOL and consuming 50-100%. Follow labs, encourage intake. DIANE DANIELS Mar 06, 2018 09:44
[2018-03-06 15:45] VITALS: BP 120/79
[2018-03-06] MEDS: ASPIRIN 325 MG TAB PO SCH (20:16)
[2018-03-06] MEDS: diphenhydrAMINE 25 MG CAP PO PRN (21:59)
[2018-03-07] MEDS: CALCIUM CARBONATE 500 MG CHEW PO PRN (00:59)
[2018-03-07 07:10] VITALS: BP 120/71
[2018-03-07] MEDS: PANTOPRAZOLE SOD 40 MG TABEC PO SCH ×2 (08:41→20:16)
[2018-03-07 17:30] VITALS: BP 137/84
[2018-03-07] MEDS: ASPIRIN 325 MG TAB PO SCH (20:16)
[2018-03-07] MEDS: diphenhydrAMINE 25 MG CAP PO PRN (20:16)
[2018-03-07] MEDS: ZOLPIDEM TARTRATE 5 MG TAB PO PRN (23:10)
[2018-03-08 07:25] VITALS: BP 119/74
[2018-03-08] MEDS: PANTOPRAZOLE SOD 40 MG TABEC PO SCH ×2 (08:53→20:16)
[2018-03-08] MEDS: CALCIUM CARBONATE 500 MG CHEW PO PRN (10:51)
--- NOTE | 2018-03-08 10:52 | Medical Nutrition Therapy ---
Nutrition Anthropometrics Height (Inches): 62.00 Height (Calculated Centimeters: 157.522819 Weight (Pounds): 122 Weight (Calculated Kilograms): 55.395 BMI Calculated: 22.31 Juan Nutrition Score: Adequate Juan Nutrition Risk Score: 17 Dietary Referral Nutrition Risk Factors: Nutrition Risk Comment: Nutritional Diagnosis Nutritional Risk Acuity 3: Fair Appetite Past Medical History: Pt past medical history of GERD and breast cancer. Nutritional Acuity: 3-Mild Nutrition Diagnosis: Increased Nutrient Needs Nutrition Etiology: Physiological Causes Nutrition Problem/Etiology/Sym: Increased Nutrient Needs related to increased demand for nutrients secondary to wound healing AEB by recent surgery indicating increased metabolic needs. Energy Requirement: 1675 ([place]-St Jeor: Actual BW X 1.6) Protein Requirement: 56 (Actual BW Kg X 1.0) Fluid Requirement: 1675 Diet Type: Diet as Tolerated MARISOL/REG Nutrition Intervention: Cont diet as ordered, HS snack Food Likes: would like Breakfast at 7:30am, Lunch at 12:30pm and Dinner at 5: 30pm Nutrition Monitoring & Eval Nutrition Goals: Eat 75-100% Meal Nutrition Follow-Up: Good Intake, Fair Intake RD Patient Assessment Time: [address] Assessment Type: RD Re-Assessment Patient Nutrition Acuity: 3-Mild Follow Up Date: Mar 16, 2018 Nutritional Comment: Pt orginally admitted for hip replacement and [facility]. Glu 107. BMI within normal range. Receiving MARISOL and consuming 50-100%. Follow labs, encourage intake. 03/08 Intake average 73% of meals. No new labs or meds. Will cont to monitor and encourage intake. DUSTIN KAHN Mar 08, 2018 10:51
--- NOTE | 2018-03-08 13:22 | OT ECF NOTE ---
Type of Note: Discharge Note Primary Medical Diagnosis: Generalized weakness s/p R LATIA Occupational Therapy Evaluation Date: 03/05/18 SUBJECTIVE: Prior Hospitalization: H 03/02/18 thru 03/05/18 Prior Level of Function: (I) with all ADLs, IADLs Prior Living Status: Alone Community Services: Support adequate, No known needs Home Accessibility: Stairs with rails All needs on one level Walk-in shower Tub/shower combination Equipment Owned: Front wheeled walker Toilet riser Tub/shower chair Electrical Design Technician Sock aide Medical Complications/Past Medical History: GERD, breast cancer (in remission ) Psychosocial Support: None noted Pain Scale (0-10): no complaint of pain upon discharge treatment OBJECTIVE: Strength: MMT: Right Left Shoulder Flexion WFL WFL Elbow Flexion WFL WFL Wrist Extension WFL WFL Manager Licensing WFL WFL (5= normal, 4= good, 3= fair, 2= poor, 1= trace) ROM: Both upper extremities, WFL Functional Transfer: Assistive Device: Front wheeled walker Transfer Ability: Modified Independent ADL: Upper body dressing: Assistive device: None Upper body dressing ability: Independent Lower body dressing: Assistive device: Electrical Design Technician, Sock aide Lower body dressing ability: Modified Independent Toileting: Assistive device: Raised toilet seat Toileting ability: Modified Independent Grooming/hygiene: Assistive device: Standing in bathroom Grooming ability: Independent Bathing: Assistive device: Bathing ability: N/T Standardized Assessment: Ana Index of Activities of Daily Livin/20 upon initial evaluation (). 18/20 upon discharge (03/08/18). ASSESSMENT: Carola presented to [facility] with decreased (I) for ADLs and IADLs s/p R LATIA. She is requesting to discharge home by tomorrow at current level of function. Pt refused to address bathtub transfer/meal prep goals. Pt has met all other skilled OT goals. Carola reports no further/questions/concerns upon discharge from OT. Pt is agreeable to discharge from skilled OT services. Problem List/Current Limitations: Pain Generalized weakness Short Term Goals: 1) Pt will be Mod (I) UB/LB dressing. GOAL MET 2) Pt will be Mod (I) grooming/hygiene. GOAL MET 3) Pt will be Mod (I) toilet task. GOAL MET 4) Pt will be Mod (I) shower task. Not addressed. Pt agreeable to utilize walk- in shower vs bathtub. 5) Pt will be Mod (I) light meal prep task. Pt refused to address this goal. 6) Pt Ana Index of ADLs score will increase by 2 points. GOAL MET Longterm Goals: Return home with HH Patient Goals: "Be okay to go home alone" Rehabilitation Prognosis: Good Barriers to Discharge: Pt fearful of movement with recent R LATIA and demonstrates anxiety with ambulation and ADLs. PLAN: The patient discharge home with services. Thank you for this referral. If you have any questions, concerns, or comments about this report or plan, please contact me at . Bethany Rosario MS, OTR/L Occupational Therapist MAHNAZ
[2018-03-08 16:35] VITALS: BP 170/98
[2018-03-08] MEDS ORDERED: ASPI-757 PO (19:07)
[2018-03-08] MEDS: ASPIRIN 325 MG TAB PO SCH (20:16)
[2018-03-08] MEDS: ZOLPIDEM TARTRATE 5 MG TAB PO PRN (20:17)
[2018-03-09] MEDS ORDERED: OXYC-865 PO ×2 (07:12→07:13)
[2018-03-09] MEDS ORDERED: PNEUMOCOC VAC POLY 25MCG/0.5ML IM ONLY ONE (08:00)
[2018-03-09 08:01] VITALS: BP 124/78
[2018-03-09] MEDS: PANTOPRAZOLE SOD 40 MG TABEC PO SCH (08:43)
--- NOTE | 2018-03-10 22:35 | PT ECF NOTE ---
Type of Note: Discharge Note Primary Medical Diagnosis: Generalized weakness s/p R) LATIA Physical Therapy Evaluation Date: 03/05/18 SUBJECTIVE: Prior Hospitalization: [facility] 03/02/18 thru 03/05/18; s/p elective R) LATIA Prior Level of Function: (I) with all ADLs, IADLs Prior Living Status: Alone; Bi-level home Community Services: Support adequate, No known needs Home Accessibility: Stairs with rails, All needs on one level, Walk-in shower , Tub/shower combination Equipment Owned: Front wheeled walker, Toilet riser, Tub/shower chair Medical Complications/Past Medical History: GERD, breast cancer (in remission ) Psychosocial Support: None noted Pain Scale (0-10): 2/10 supine in bed upon initial evaluation OBJECTIVE: Strength: Functional mobility indicates B) LE strength greater than 4/5 overall. Pt now able to complete full heel slide in supine without discomfort and SLR to supine to/from sit without difficulty. ROM: (please note any abnormalities) R) hip limited due to posterior hip precautions Sensation: (please note any abnormalities) no paresthesias reported Other Neuro findings: n/a Bed Mobility: Modified indep Assistive device: None Transfers: Modified indep Assistive Device: Front wheeled walker; Gait belt Gait: 200' with Modified indep Assistive device: Front wheeled walker Stairs: Up/down 4 steps with rails and Modified indep Assistive device: Rails Timed Up and Go (>12 seconds indicated increased risk for falls): 18 seconds 10 meter walk test (0.6m/second cannot function independently): n/a ASSESSMENT: Pt demos appropriate functional mobility with strength and balance. Cues needed initially to apply LATIA precautions to bed mobility and turns. When pt becomes agitated, she frequently moves impulsively and is aware that this places her at risk for injury. Problem List/Current Limitations: Pain, Decreased activity prince, Decreased strength, Decreased ROM, Decreased balance Short Term Goals: (Met) 1. Pt to be indep with bed mobility and supine to/from sit transfers with proper compliance with hip precautions 2. Pt to be indep with sit to/from stand transfers with FWW and chose appropriate sitting surfaces of higher height for LATIA precautions 3. Pt to ambulate 200' with FWW and improved rigo and TUG test 4. Pt to prince up/down 4 steps with rail modified indep [facility] Goals: Pt to transition home to previous living arrangement with increased confidence and safety with mobility and ADL's. Patient Goals: To discharge home by or Thu next week, as this is her "holy week" of . Rehabilitation Prognosis: Good Barriers for Discharge: Pt's problem solving skills and indep with functional mobility within her LATIA precautions guidelines. PLAN: PT goals met; no further visits indicated. Pt to transfer home tomorrow and notes that she will have [facility] services available. Pt states that she will follow up with Dr. Farris in his office as scheduled as well. Thank you for this referral. If you have any questions, concerns, or comments about this report or plan, please contact me at . h. Pretty Miller, PT, MPT MTDD
--- NOTE | 2018-03-16 22:11 | DISCHARGE SUMMARY ---
DATE OF ADMISSION: March 05, 2018 DATE OF DISCHARGE: March 09, 2018 The patient was transferred up to the extended care facility here at [facility]. ADMITTING PHYSICIAN Jae Farris MD CONSULTATIONS PT as well as Internal Medicine. ADMITTING DIAGNOSIS Right hip osteoarthritis. PROCEDURE PERFORMED Right total hip arthroplasty performed on the above date, March 05, 2018. INDICATIONS AND HISTORY This patient is a 67-year-old female who presented to my clinic for evaluation of right hip pain and irritation going on for some time. She continued to have pain and irritation despite conservative management associated with the hip, so therefore she wanted to go ahead with the total hip arthroplasty. Unfortunately , she had had some gastrointestinal issues the first two times we scheduled her , and so the third time she was able to do it after getting an EGD that showed she has had a little bit of stricture and stenosis associated with that. Once we got her set up to do this, the risks and benefits were discussed with the patient, and informed consent was obtained prior to the procedure. DESCRIPTION OF HOSPITAL COURSE The patient was admitted shortly after the procedure on March 05, 2018. She did struggle initially and then had a lot of psychological blocks in order to get and move and walk. She was worried about pain consistently throughout the entire hospital course and continued to have a lot of apprehension and issues associated with trying to move and trying to get around the hospital. By postoperative day three, she was able to transfer up to the extended care facility secondarily due to the fact of pain control and walking. She did have some problems with sleeping during the entire hospital course, which I told her was normal after anesthesia. [facility]
== END 2018-03-09 10:39 | disposition home health service (06) | DRG 561 ==
LOC: ECF 13:15
PROVIDERS: ADMIT Orthopaedic Surgery; ATTEND Orthopaedic Surgery
DX: Z47.1 Aftercare following joint replacement surgery (principal); G89.18 Other acute postprocedural pain; Z96.641 Presence of right artificial hip joint; Z23 Encounter for immunization
CPT/HCPCS: 90471; 90732; 97161; 97165; Q0163

== ENCOUNTER → 2018-03-29 | Outpatient (CLI) | payer MEDICARE, MEDICAID ==
[2018-03-05 19:49] VITALS: BMI 22.3
[~2018-03-29] MED LIST changes: +ASPI-757 PO; +OXYC-865 PO
--- NOTE | 2018-03-29 15:45 | RADIOLOGY IMAGING REPORT ---
FACILITY: [facility] [place] PATIENT NAME: Carola Rosario : 1950 MR: [id number] V: [id number] EXAM DATE: ORDERING PHYSICIAN: BINH BANDA TECHNOLOGIST: [place] [facility] [place] Patient: Carola Rosario : 1950 Visit/Account:[id number] Date of Sevice: 03/29/2018 Exam type: GASTRIC EMPTYING History: Nausea, GERD, gastroparesis Comparison: None. Findings: The patient received a meal of 2.2 mCi of technetium 99m sulfur colloid in 4 ounces of eggbeaters wit h two slices of toast in 4 ounces of water which was consumed within 10 minutes.. Anterior posterior gamma camera images were obtained over the abdomen immediately following the medial ingestion, at on e hour, two hours, three hours and four hours. . 78% of the medial was retained at one hour 63% the medial was retained at two hours 48% of the medial was retained at three hours 26% of the medial was retained at four hours IMPRESSION: 1. 26% of the meal was retained after four hours Report Dictated By: Lissy Bean MD at 03/29/2018 3:37 PM Report E-Signed By: Lissy Bean MD at 03/29/2018 3:40 PM WSN:[id number]
== END ==
LOC: RAD 07:25
PROVIDERS: ATTEND Family Medicine
DX: K31.84 Gastroparesis (principal)
CPT/HCPCS: 78264; A9541

== ENCOUNTER → 2018-06-30 | Outpatient (CLI) | payer MEDICARE, MEDICAID ==
[2018-03-05 19:49] VITALS: BMI 22.3
[~2018-06-30] MED LIST changes: +IBUP-136 PO; -IBUP200C71 PO; -TETR-30 PO; +TETR500C2 PO
--- NOTE | 2018-06-30 16:08 | RADIOLOGY IMAGING REPORT ---
[facility] PATIENT NAME: JACK HERNANDEZ : [id number] MR: [id number] V: [id number] EXAM DATE: [id number] ORDERING PHYSICIAN: JOSY BRANDT TECHNOLOGIST: Dee Peralta PROCEDURE:BILATERAL DIAGNOSTIC DIGITAL MAMMOGRAM ad COMPARISON:Prior mammograms 11/18/17, 04/04/15. INDICATIONS:NEW BREAST LUMPS, HX BREAST CA, 6 MONTH FOLLOW-UP FINDINGS: A small amount of fibroglandular tissue is seen throughout the breasts. Area of postsurgical scaring in the upper outer quadrant of the Left breast is again noted. The parenchymal pattern throughout the remainder of the breast has remained stable. There is no demonstration of malignant appearing mass, malignant appearing calcifications or other secondary sign of malignancy in either breast. DIAGNOSTIC CATEGORY 2--BENIGN FINDING. RECOMMENDATIONS: ROUTINE MAMMOGRAM AND CLINICAL EVALUATION. IMPRESSION: BIRADS 2: Benign finding. No significant abnormality is seen. Dictated by: Lissy Bean M.D. on 06/30/2018 at 15:12 Transcribed by: [email or web address] on 06/30/2018 at 15:33 Approved by: Lissy Bean M.D. on 06/30/2018 at 16:07 [facility]
== END ==
LOC: MAMO 02:00
PROVIDERS: ATTEND Internal Medicine Hematology
DX: Z85.3 Personal history of malignant neoplasm of breast (principal); Z17.0 Estrogen receptor positive status [ER+]; N63.0 Unspecified lump in unspecified breast
CPT/HCPCS: 77062; 77066